=== PATIENT | male | born 1965 | race Caucasian/White ===

== ENCOUNTER 2022-04-09 11:20 | Inpatient (IN) | payer MEDICARE, MEDICAID ==
[~2022-04-09] VITALS: Ht 177.8 cm; Wt 108.0 kg
[2022-04-09] MEDS ORDERED: LORAZEPAM 0.5MG TABLET PO PRN (11:45)
[2022-04-09] MEDS ORDERED: GUAIFENESIN 200MG/10ML SUGAR FREE UDC PO PRN (11:45)
[2022-04-09] MEDS ORDERED: DIPHENHYDRAMINE 50MG/ML VIAL IV PRN (11:45)
[2022-04-09] MEDS ORDERED: MAGNESIUM/ALUMINUM HYDROXIDE/SIMETHICONE 30ML UDC PO PRN (11:45)
[2022-04-09] MEDS ORDERED: MORPHINE SULFATE 2 MG/ML CPJ (NOT FOR IM USE) IV PRN (11:45)
[2022-04-09] MEDS ORDERED: HYDROCODONE/ACETAMINOPHEN 5/325MG TABLET PO PRN (11:45)
[2022-04-09] MEDS ORDERED: DOCUSATE SODIUM 100MG CAPSULE PO PRN (11:45)
[2022-04-09] MEDS ORDERED: IPRATROPIUM/ALBUTEROL 0.5-3(2.5)MG/3ML NEB HHN PRN (11:45)
[2022-04-09] MEDS ORDERED: ONDANSETRON HCL 4MG/2ML INJ IV PRN (11:45)
[2022-04-09] MEDS ORDERED: NALOXONE HCL 0.4MG/ML VIAL IV PRN (11:45)
[2022-04-09] MEDS ORDERED: ENOXAPARIN 100MG/ML SYR SUBCUT NR (14:30)
[2022-04-09 14:49] LABS: CHLORIDE 111 mEq/L (98-107)
[2022-04-09 15:00] LABS: HDL CHOLESTEROL 31 mg/dL (40-59); LDL CHOLESTEROL 47 mg/dL (5-100)
[2022-04-09 15:02] LABS: BASOPHILS % 0.7 % (0.0-2.0); EOSINOPHILS % 1.6 % (0.0-5.0); HEMATOCRIT. 28.7 % (42.0-52.0); HEMOGLOBIN. 9.2 g/dL (14.0-18.0); LYMPHOCYTES % 23.7 % (20.0-50.0); MEAN CORPUSCULAR HEMOGLOBIN 28.3 pg (28.0-32.0); MEAN CORPUSCULAR VOLUME 87.7 fL (80.0-94.0); MEAN PLATELET VOLUME 8.5 fl (7.4-10.4); MONOCYTES % 9.6 % (2.0-8.0); NEUTROPHILS % 64.4 % (40.0-76.0); PLATELET 258 x1000/uL (130-400); RED BLOOD CELL COUNT 3.27 mill/uL (4.7-6.1); RED CELL DISTRIBUTION WIDTH 14.6 % (11.6-14.6)
[2022-04-09] MEDS: ASPIRIN 81MG TABLET PO SCH (15:30)
[2022-04-09 15:58] LABS: CLARITY URINE CLEAR (CLEAR); COLOR URINE YELLOW (YELLOW); KETONES URINE NEGATIVE (NEGATIVE); LEUKOCYTE ESTERASE URINE NEGATIVE (NEGATIVE); NITRITE URINE NEGATIVE (NEGATIVE); OCCULT BLOOD URINE NEGATIVE (NEGATIVE); PROTEIN URINE 3+ (NEGATIVE); SPECIFIC GRAVITY URINE 1.013 (1.005-1.030); UROBILINOGEN URINE 0.2 E.U./dL (0.2-1.0)
[2022-04-09] MEDS: CLONIDINE 0.1MG TABLET PO PRN (19:51)
[2022-04-09] MEDS: CARVEDILOL 3.125 MG TABLET PO SCH (21:00)
[2022-04-09 21:30] VITALS: BP 170/69
[2022-04-09 21:45] VITALS: BP 170/69
[2022-04-09 22:20] VITALS: BP 139/88
[2022-04-09 23:00] VITALS: BP 133/64
[2022-04-09] MEDS: NITROGLYCERIN OINT 1GM/INCH UDPKT TD SCH (23:14)
[2022-04-10] VITALS (16 sets, daily range): BP systolic 128–169; BP diastolic 57–86
[2022-04-10] MEDS: NITROGLYCERIN OINT 1GM/INCH UDPKT TD SCH ×3 (06:28→21:10)
[2022-04-10 06:30] LABS: BASOPHILS % 0.6 % (0.0-2.0); EOSINOPHILS % 2.4 % (0.0-5.0); HEMATOCRIT. 25.6 % (42.0-52.0); HEMOGLOBIN. 8.5 g/dL (14.0-18.0); LYMPHOCYTES % 21.2 % (20.0-50.0); MEAN CORPUSCULAR HEMOGLOBIN 28.9 pg (28.0-32.0); MEAN CORPUSCULAR VOLUME 86.7 fL (80.0-94.0); MEAN PLATELET VOLUME 8.8 fl (7.4-10.4); MONOCYTES % 9.2 % (2.0-8.0); NEUTROPHILS % 66.6 % (40.0-76.0); PLATELET 216 x1000/uL (130-400); RED BLOOD CELL COUNT 2.95 mill/uL (4.7-6.1); RED CELL DISTRIBUTION WIDTH 14.3 % (11.6-14.6)
[2022-04-10 07:32] LABS: PHOSPHORUS 4.3 mg/dL (2.5-4.9)
[2022-04-10] MEDS ORDERED: SODIUM CHLORIDE 0.45% 1,000 ML IV SCH (08:00)
[2022-04-10] MEDS: ASPIRIN 81MG TABLET PO SCH (09:00)
[2022-04-10] MEDS: CARVEDILOL 3.125 MG TABLET PO SCH ×2 (10:10→20:56)
[2022-04-10] MEDS ORDERED: FENTANYL CITRATE/PF 50MCG/ML 2ML VIAL ONE (11:05)
[2022-04-10] MEDS ORDERED: MIDAZOLAM HCL 2 MG/2 ML VIAL ONE (11:05)
[2022-04-10] MEDS ORDERED: ASPIRIN/SOD BICARB/CITRIC ACID 324MG TAB EFF ONE (11:05)
[2022-04-10] MEDS ORDERED: IODIXANOL 320MG/ML 100 ML BOTTLE IV ONE (11:05)
[2022-04-10] MEDS ORDERED: HEPARIN 1000 UNITS/ML 10ML ONE (11:05)
[2022-04-10] MEDS ORDERED: LIDOCAINE HCL 1% 10 MG/ML 10ML VIAL ONE ×2 (11:06→13:00)
[2022-04-10] MEDS ORDERED: CLOPIDOGREL 75MG TABLET ONE (13:36)
[2022-04-10] MEDS ORDERED: ONDANSETRON HCL 4MG/2ML INJ IV PRN (14:00)
[2022-04-10] MEDS ORDERED: MORPHINE SULFATE 2 MG/ML CPJ (NOT FOR IM USE) IV PRN (14:00)
[2022-04-10] MEDS ORDERED: SODIUM CHLORIDE 0.45% 1,000 ML IV ONE (14:00)
[2022-04-10] MEDS ORDERED: ACETAMINOPHEN 325MG TABLET PO PRN (14:00)
[2022-04-10] MEDS ORDERED: ATROPINE SULFATE 1MG/10ML SYR IV PRN (14:00)
[2022-04-10] MEDS ORDERED: CLOPIDOGREL 75MG TABLET PO SCH (14:00)
[2022-04-10] MEDS: CLONIDINE 0.1MG TABLET PO PRN (23:44)
[2022-04-11] VITALS (7 sets, daily range): BP systolic 113–145; BP diastolic 35–78
[2022-04-11 05:56] LABS: PARTIAL THROMBOPLASTIN TIME 27.2 sec (23.4-31.0); PROTHROMBIN TIME 11.2 sec (9.6-11.0)
[2022-04-11] MEDS: NITROGLYCERIN OINT 1GM/INCH UDPKT TD SCH (06:20)
[2022-04-11 06:34] LABS: BASOPHILS % 0.4 % (0.0-2.0); EOSINOPHILS % 2.7 % (0.0-5.0); HEMATOCRIT. 27.1 % (42.0-52.0); LYMPHOCYTES % 16.1 % (20.0-50.0); MEAN CORPUSCULAR HEMOGLOBIN 28.6 pg (28.0-32.0); MEAN CORPUSCULAR VOLUME 85.7 fL (80.0-94.0); MEAN PLATELET VOLUME 8.9 fl (7.4-10.4); MONOCYTES % 7.5 % (2.0-8.0); NEUTROPHILS % 73.3 % (40.0-76.0); PLATELET 233 x1000/uL (130-400); RED BLOOD CELL COUNT 3.16 mill/uL (4.7-6.1); RED CELL DISTRIBUTION WIDTH 14.2 % (11.6-14.6)
[2022-04-11] MEDS ORDERED: ASPIRIN 81MG TABLET PO SCH (09:00)
[2022-04-11] MEDS ORDERED: CLOPIDOGREL 75MG TABLET PO SCH (09:00)
[2022-04-11] MEDS ORDERED: CITRIC ACID/SODIUM CITRATE SOLN 15ML UDC PO SCH (09:00)
[2022-04-11] MEDS: CARVEDILOL 3.125 MG TABLET PO SCH (10:06)
== END 2022-04-11 12:45 | disposition home or self-care (01) | DRG 246 ==
LOC: EDBD 11:20 → ER 11:20 → 5EST 13:52 → ENRESERV 18:36 → CANRESERV 18:36 → ENRESERV 18:55 → CANRESERV 18:55 → EDBEDREQSVC 20:02 → ENRESERV 20:04
PROVIDERS: ADMIT Family Medicine Adult Medicine; ATTEND Family Medicine Adult Medicine
PROC: B2111ZZ Fluoroscopy of Multiple Coronary Arteries using Low Osmolar Contrast (ICD-10-PCS; principal; 2022-04-10)
PROC: 027034Z Dilation of Coronary Artery, One Artery with Drug-eluting Intraluminal Device, Percutaneous Approach (ICD-10-PCS; 2022-04-10)
DX: I25.110 Atherosclerotic heart disease of native coronary artery with unstable angina pectoris (principal); I50.31 Acute diastolic (congestive) heart failure; I13.0 Hypertensive heart and chronic kidney disease with heart failure and stage 1 through stage 4 chronic kidney disease, or unspecified chronic kidney disease; N18.4 Chronic kidney disease, stage 4 (severe); E11.22 Type 2 diabetes mellitus with diabetic chronic kidney disease; E78.5 Hyperlipidemia, unspecified; Z20.822 Contact with and (suspected) exposure to COVID-19; D64.9 Anemia, unspecified; E11.51 Type 2 diabetes mellitus with diabetic peripheral angiopathy without gangrene; R80.9 Proteinuria, unspecified; Z89.429 Acquired absence of other toe(s), unspecified side; Z90.49 Acquired absence of other specified parts of digestive tract; I25.2 Old myocardial infarction; Z83.3 Family history of diabetes mellitus
CPT/HCPCS: 36415; 71045; 80048; 80053; 80061; 81003; 82550; 82962; 83735; 83880; 84100; 84443; 84484; 85025; 85347; 86850; 86900; 87426; 92928; 93005; 93306; 93454; 97161; 97162; 97165; 97166; 97535; 99285; C1725; C1760; C1769; C1874; C1887; C1893; C9803; J1644; J1650; J2250; J3010; J3490; Q9967

== ENCOUNTER 2022-10-13 08:30 | Inpatient (IN) | payer MEDICARE, MEDICAID ==
[~2022-10-13] VITALS: Ht 177.8 cm; Wt 92.6 kg
[2022-10-13] VITALS (24 sets, daily range): BP systolic 110–168; BP diastolic 54–105
[2022-10-13] MEDS ORDERED: ASPIRIN 81MG TABLET PO ONE ×2 (09:00→10:00)
[2022-10-13 09:18] LABS: BASOPHILS % 0.3 % (0.0-2.0); HEMATOCRIT. 27.1 % (42.0-52.0); HEMOGLOBIN. 8.8 g/dL (14.0-18.0); LYMPHOCYTES % 9.1 % (20.0-50.0); MEAN CORPUSCULAR HEMOGLOBIN 27.5 pg (28.0-32.0); MEAN CORPUSCULAR VOLUME 84.6 fL (80.0-94.0); MEAN PLATELET VOLUME 8.9 fl (7.4-10.4); MONOCYTES % 8.2 % (2.0-8.0); NEUTROPHILS % 81.4 % (40.0-76.0); PLATELET 232 x1000/uL (130-400); RED BLOOD CELL COUNT 3.21 mill/uL (4.7-6.1); RED CELL DISTRIBUTION WIDTH 15.6 % (11.6-14.6)
[2022-10-13 09:27] LABS: PARTIAL THROMBOPLASTIN TIME 29.3 sec (23.4-31.0)
[2022-10-13 09:32] LABS: CHLORIDE 107 mEq/L (98-107)
[2022-10-13 09:34] LABS: BG BASE EXCESS -8.2 mmol/L (-2.0-2.0); BG CARBOXYHEMOGLOBIN 0.2 % (0.5-1.5); BG HCO3 ACT 15.6 mmol/L (22.0-26.0); BG METHEMOGLOBIN 0.3 % (0.0-1.5); BG OXYHEMOGLOBIN 98.5 % (94.0-97.0); BG PCO2 26.6 mmHg (35.0-45.0); BG PH 7.386 (7.350-7.450); BG PO2 215.9 mmHg (75.0-100.0); BG SAMPLE SITE RIGHT BRACHIAL; BG TOTAL HEMOGLOBIN 9.7 g/dL (12.0-18.0); BG VENT MODE MASK - BIPAP
[2022-10-13] MEDS ORDERED: NITROGLYCERIN 50MG PREMIX 250 ML IV ONE (10:00)
[2022-10-13] MEDS ORDERED: HEPARIN 25,000 UNITS PREMIX 250 ML IV ONE (10:00)
[2022-10-13] MEDS ORDERED: FUROSEMIDE 40MG/4ML VIAL IVP ONE (10:00)
[2022-10-13] MEDS ORDERED: HEPARIN 5000 UNITS/ML VIAL IV ONE (10:00)
[2022-10-13] MEDS ORDERED: PIPERACILLIN/TAZOBACTAM 3.375GM/50ML PREMIX IV ONE (10:45)
[2022-10-13] MEDS ORDERED: VANCOMYCIN 1G PREMIX 200 ML IV SCH (10:45)
[2022-10-13] MEDS ORDERED: PIPERACILLIN/TAZ 3.375G PREMIX 50 ML IV NR (10:45)
[2022-10-13] MEDS ORDERED: HEPARIN 25,000 UNITS PREMIX 250 ML IV SCH (11:00)
[2022-10-13] MEDS: NITROGLYCERIN 50MG PREMIX 250 ML IV SCH ×3 (11:23→17:41)
[2022-10-13] MEDS ORDERED: DOCUSATE SODIUM 100MG CAPSULE PO PRN (11:45)
[2022-10-13] MEDS ORDERED: ACETAMINOPHEN 325MG TABLET PO PRN ×2 (11:45)
[2022-10-13] MEDS ORDERED: HYDROCODONE/ACETAMINOPHEN 5/325MG TABLET PO PRN (11:45)
[2022-10-13] MEDS ORDERED: IPRATROPIUM/ALBUTEROL 0.5-3(2.5)MG/3ML NEB HHN PRN (11:45)
[2022-10-13] MEDS ORDERED: CLONIDINE 0.1MG TABLET PO PRN (11:45)
[2022-10-13] MEDS ORDERED: ALBUTEROL (0.083%) 2.5MG/3ML NEB HHN PRN (12:15)
[2022-10-13 13:01] LABS: CLARITY URINE CLEAR (CLEAR); COLOR URINE YELLOW (YELLOW); KETONES URINE NEGATIVE (NEGATIVE); LEUKOCYTE ESTERASE URINE NEGATIVE (NEGATIVE); NITRITE URINE NEGATIVE (NEGATIVE); OCCULT BLOOD URINE NEGATIVE (NEGATIVE); PROTEIN URINE 3+ (NEGATIVE); SPECIFIC GRAVITY URINE 1.012 (1.005-1.030); UROBILINOGEN URINE 0.2 E.U./dL (0.2-1.0)
[2022-10-13 13:17] LABS: *AMPHETAMINES SCREEN URINE NEGATIVE (NEGATIVE); *BARBITURATES SCREEN URINE NEGATIVE (NEGATIVE); *BENZODIAZEPINES SCREEN URINE NEGATIVE (NEGATIVE); *COCAINE SCREEN URINE NEGATIVE (NEGATIVE); CANNABINOID URINE SCREEN NEGATIVE (NEGATIVE); METHADONE URINE SCREEN NEGATIVE (NEGATIVE); OPIATES URINE SCREEN NEGATIVE (NEGATIVE); PHENCYCLIDINE URINE SCREEN NEGATIVE (NEGATIVE)
[2022-10-13] MEDS ORDERED: FUROSEMIDE 100MG/10ML VIAL IVP NR (16:00)
[2022-10-13] MEDS: BENZONATATE 100MG CAPSULE PO PRN (16:47)
[2022-10-13] MEDS ORDERED: HEPARIN BOLUS PRN aPTT <30 IV (17:00)
[2022-10-13] MEDS ORDERED: HEPARIN BOLUS PRN aPTT 30-44 IV (17:00)
[2022-10-13] MEDS ORDERED: ENOXAPARIN 120MG/0.8ML SYR SUBCUT SCH (20:00)
[2022-10-13] MEDS: ALBUTEROL (0.083%) 2.5MG/3ML NEB HHN SCH (20:41)
[2022-10-13] MEDS ORDERED: DEXTROSE 50% WATER 50ML SYRINGE IV PRN (21:00)
[2022-10-13] MEDS: INSULIN LISPRO 100 UNITS/ML SUBCUT SCH (21:00)
[2022-10-13] MEDS: LORAZEPAM 0.5MG TABLET PO PRN (21:11)
[2022-10-13] MEDS: GUAIFENESIN 600MG ER TABLET PO SCH (21:11)
[2022-10-13] MEDS: BLOOD SUGAR DIAGNOSTIC STRIP TEST SCH (21:23)
[2022-10-14] VITALS (92 sets, daily range): BP systolic 76–178; BP diastolic 38–112
[2022-10-14] MEDS: BENZONATATE 100MG CAPSULE PO PRN ×2 (01:01→14:30)
[2022-10-14] MEDS: NITROGLYCERIN 50MG PREMIX 250 ML IV SCH ×2 (01:23→15:11)
[2022-10-14] MEDS: ALBUTEROL (0.083%) 2.5MG/3ML NEB HHN SCH ×4 (02:18→20:32)
[2022-10-14 05:01] LABS: HEMATOCRIT. 23.3 % (42.0-52.0); HEMOGLOBIN. 7.8 g/dL (14.0-18.0); MEAN CORPUSCULAR HEMOGLOBIN 27.6 pg (28.0-32.0); MEAN CORPUSCULAR VOLUME 82.2 fL (80.0-94.0); MEAN PLATELET VOLUME 8.4 fl (7.4-10.4); PLATELET 217 x1000/uL (130-400); RED BLOOD CELL COUNT 2.84 mill/uL (4.7-6.1); RED CELL DISTRIBUTION WIDTH 15.5 % (11.6-14.6)
[2022-10-14] MEDS: ONDANSETRON HCL 4MG/2ML INJ IV PRN ×2 (05:24→18:43)
[2022-10-14] MEDS ORDERED: LIDOCAINE HCL 1% 10 MG/ML 10ML VIAL ONE (07:55)
[2022-10-14] MEDS: BLOOD SUGAR DIAGNOSTIC STRIP TEST SCH ×4 (08:18→20:56)
[2022-10-14] MEDS: INSULIN LISPRO 100 UNITS/ML SUBCUT SCH ×4 (08:19→20:56)
[2022-10-14 09:05] LABS: PLATELET ESTIMATE NORMAL
[2022-10-14 09:16] LABS: BG BASE EXCESS -4.2 mmol/L (-2.0-2.0); BG CARBOXYHEMOGLOBIN 0.4 % (0.5-1.5); BG DEOXYHEMOGLOBIN 1.1 % (0.0-5.0); BG FRACTION INSPIRED OXYGEN 80; BG HCO3 ACT 19.6 mmol/L (22.0-26.0); BG METHEMOGLOBIN 0.2 % (0.0-1.5); BG OXYGEN SATURATION 98.9 % (92.0-98.5); BG OXYHEMOGLOBIN 98.3 % (94.0-97.0); BG PH 7.419 (7.350-7.450); BG PO2 174.9 mmHg (75.0-100.0); BG SAMPLE SITE RIGHT RADIAL; BG TOTAL HEMOGLOBIN 8.6 g/dL (12.0-18.0); BG TOTAL RESPIRATORY RATE 38 b/min; BG VENT MODE MASK - BIPAP
[2022-10-14] MEDS: GUAIFENESIN 600MG ER TABLET PO SCH ×2 (09:41→20:55)
[2022-10-14] MEDS: IPRATROPIUM BROMIDE (0.02%) 0.5MG/2.5ML NEB HHN PRN (10:02)
[2022-10-14] MEDS: ASPIRIN 81MG EC TABLET PO SCH (12:14)
[2022-10-14] MEDS: CLOPIDOGREL 75MG TABLET PO SCH (12:14)
[2022-10-14] MEDS ORDERED: NALOXONE HCL 0.4MG/ML VIAL IV PRN (12:15)
[2022-10-14] MEDS ORDERED: FUROSEMIDE 100MG/10ML VIAL IVP NR (16:45)
[2022-10-14] MEDS: LORAZEPAM 0.5MG TABLET PO PRN (17:24)
[2022-10-14 18:08] LABS: HEPATITIS B SURFACE ANTIGEN NEGATIVE
[2022-10-14] MEDS: ENOXAPARIN 120MG/0.8ML SYR SUBCUT SCH (20:55)
[2022-10-14] MEDS: CARVEDILOL 3.125 MG TABLET PO SCH (20:56)
[2022-10-15] VITALS (101 sets, daily range): BP systolic 62–177; BP diastolic 21–153
[2022-10-15 00:01] LABS: BG BASE EXCESS -5.1 mmol/L (-2.0-2.0); BG CARBOXYHEMOGLOBIN 0.4 % (0.5-1.5); BG DEOXYHEMOGLOBIN 14.5 % (0.0-5.0); BG FRACTION INSPIRED OXYGEN 95; BG METHEMOGLOBIN 0.1 % (0.0-1.5); BG OXYGEN SATURATION 85.4 % (92.0-98.5); BG PH 7.391 (7.350-7.450); BG PO2 52.3 mmHg (75.0-100.0); BG SAMPLE SITE RIGHT RADIAL; BG TOTAL HEMOGLOBIN 11.4 g/dL (12.0-18.0); BG TOTAL RESPIRATORY RATE 20 b/min; BG VENT MODE MASK - BIPAP
[2022-10-15] MEDS: IPRATROPIUM BROMIDE (0.02%) 0.5MG/2.5ML NEB HHN PRN (00:16)
[2022-10-15] MEDS: ALBUTEROL (0.083%) 2.5MG/3ML NEB HHN SCH (01:59)
[2022-10-15] MEDS ORDERED: FUROSEMIDE 100MG/10ML VIAL IVP NR (02:58)
[2022-10-15 05:50] LABS: PHOSPHORUS 4.8 mg/dL (2.5-4.9)
[2022-10-15] MEDS: INSULIN LISPRO 100 UNITS/ML SUBCUT SCH ×4 (08:20→20:52)
[2022-10-15] MEDS ORDERED: IPRATROPIUM BROMIDE (0.02%) 0.5MG/2.5ML NEB HHN PRN (08:30)
[2022-10-15 08:32] LABS: BG BASE EXCESS -0.7 mmol/L (-2.0-2.0); BG CARBOXYHEMOGLOBIN 0.6 % (0.5-1.5); BG DEOXYHEMOGLOBIN 0.8 % (0.0-5.0); BG FRACTION INSPIRED OXYGEN 100; BG METHEMOGLOBIN 0.3 % (0.0-1.5); BG OXYGEN SATURATION 99.2 % (92.0-98.5); BG OXYHEMOGLOBIN 98.3 % (94.0-97.0); BG PH 7.449 (7.350-7.450); BG PO2 208.9 mmHg (75.0-100.0); BG SAMPLE SITE RIGHT RADIAL; BG TOTAL HEMOGLOBIN 8.9 g/dL (12.0-18.0); BG VENT MODE MASK - BIPAP
[2022-10-15] MEDS: BLOOD SUGAR DIAGNOSTIC STRIP TEST SCH ×4 (08:41→20:48)
[2022-10-15] MEDS: IPRATROPIUM BROMIDE (0.02%) 0.5MG/2.5ML NEB HHN SCH ×3 (08:50→20:17)
[2022-10-15 09:24] LABS: HEMATOCRIT. 24.8 % (42.0-52.0); HEMOGLOBIN. 8.2 g/dL (14.0-18.0); MEAN CORPUSCULAR HEMOGLOBIN 27.1 pg (28.0-32.0); MEAN CORPUSCULAR VOLUME 82.2 fL (80.0-94.0); MEAN PLATELET VOLUME 8.4 fl (7.4-10.4); PLATELET 240 x1000/uL (130-400); RED BLOOD CELL COUNT 3.02 mill/uL (4.7-6.1); RED CELL DISTRIBUTION WIDTH 15.4 % (11.6-14.6)
[2022-10-15] MEDS: CLOPIDOGREL 75MG TABLET PO SCH (09:37)
[2022-10-15] MEDS: GUAIFENESIN 600MG ER TABLET PO SCH ×2 (09:37→20:47)
[2022-10-15] MEDS: ASPIRIN 81MG EC TABLET PO SCH (09:37)
[2022-10-15] MEDS: FAMOTIDINE 20MG TABLET PO SCH (09:37)
[2022-10-15] MEDS: CARVEDILOL 3.125 MG TABLET PO SCH (09:38)
[2022-10-15 10:38] LABS: PLATELET ESTIMATE NORMAL
[2022-10-15] MEDS: LORAZEPAM 0.5MG TABLET PO PRN (14:28)
[2022-10-15] MEDS: CEFEPIME 1,000 MG in DEXTROSE 5% WATER 50 ML IV SCH (20:46)
[2022-10-15] MEDS: CARVEDILOL 6.25 MG TABLET PO SCH (20:47)
[2022-10-15] MEDS: ENOXAPARIN 120MG/0.8ML SYR SUBCUT SCH (20:47)
[2022-10-15] MEDS ORDERED: AMLODIPINE 5MG TABLET PO SCH (21:00)
[2022-10-16] VITALS (56 sets, daily range): BP systolic 86–166; BP diastolic 32–99
[2022-10-16] MEDS: IPRATROPIUM BROMIDE (0.02%) 0.5MG/2.5ML NEB HHN SCH ×3 (01:08→21:03)
[2022-10-16 05:23] LABS: BASOPHILS % 0.3 % (0.0-2.0); EOSINOPHILS % 3.6 % (0.0-5.0); HEMATOCRIT. 26.9 % (42.0-52.0); HEMOGLOBIN. 8.8 g/dL (14.0-18.0); LYMPHOCYTES % 8.8 % (20.0-50.0); MEAN CORPUSCULAR HEMOGLOBIN 27.5 pg (28.0-32.0); MEAN PLATELET VOLUME 8.7 fl (7.4-10.4); MONOCYTES % 3.9 % (2.0-8.0); NEUTROPHILS % 83.4 % (40.0-76.0); PLATELET 252 x1000/uL (130-400); RED BLOOD CELL COUNT 3.21 mill/uL (4.7-6.1); RED CELL DISTRIBUTION WIDTH 15.7 % (11.6-14.6)
[2022-10-16] MEDS: BLOOD SUGAR DIAGNOSTIC STRIP TEST SCH ×4 (07:47→21:00)
[2022-10-16] MEDS: INSULIN LISPRO 100 UNITS/ML SUBCUT SCH ×4 (07:48→21:45)
[2022-10-16] MEDS: FAMOTIDINE 20MG TABLET PO SCH (08:51)
[2022-10-16] MEDS: CLOPIDOGREL 75MG TABLET PO SCH (08:51)
[2022-10-16] MEDS: CARVEDILOL 6.25 MG TABLET PO SCH ×2 (08:51→21:36)
[2022-10-16] MEDS: ASPIRIN 81MG EC TABLET PO SCH (08:51)
[2022-10-16] MEDS: GUAIFENESIN 600MG ER TABLET PO SCH ×3 (08:51→21:00)
[2022-10-16 09:06] LABS: BG BASE EXCESS 1.2 mmol/L (-2.0-2.0); BG CARBOXYHEMOGLOBIN 0.3 % (0.5-1.5); BG DEOXYHEMOGLOBIN 0.6 % (0.0-5.0); BG FRACTION INSPIRED OXYGEN 90; BG HCO3 ACT 24.4 mmol/L (22.0-26.0); BG METHEMOGLOBIN 0.3 % (0.0-1.5); BG OXYGEN SATURATION 99.4 % (92.0-98.5); BG OXYHEMOGLOBIN 98.8 % (94.0-97.0); BG PCO2 33.1 mmHg (35.0-45.0); BG PH 7.486 (7.350-7.450); BG PO2 302.6 mmHg (75.0-100.0); BG SAMPLE SITE RIGHT RADIAL; BG TOTAL HEMOGLOBIN 8.6 g/dL (12.0-18.0); BG VENT MODE MASK - BIPAP
[2022-10-16] MEDS: BENZONATATE 100MG CAPSULE PO PRN (21:36)
[2022-10-16] MEDS: CEFEPIME 1,000 MG in DEXTROSE 5% WATER 50 ML IV SCH (21:36)
[2022-10-16] MEDS: ENOXAPARIN 100MG/ML SYR SUBCUT SCH (21:36)
[2022-10-17] VITALS (59 sets, daily range): BP systolic 88–178; BP diastolic 25–90
[2022-10-17] MEDS: IPRATROPIUM BROMIDE (0.02%) 0.5MG/2.5ML NEB HHN SCH ×5 (02:18→21:46)
[2022-10-17 05:45] LABS: BASOPHILS % 0.2 % (0.0-2.0); EOSINOPHILS % 4.8 % (0.0-5.0); HEMATOCRIT. 27.1 % (42.0-52.0); HEMOGLOBIN. 8.8 g/dL (14.0-18.0); LYMPHOCYTES % 9.5 % (20.0-50.0); MEAN CORPUSCULAR VOLUME 83.1 fL (80.0-94.0); MEAN PLATELET VOLUME 8.6 fl (7.4-10.4); MONOCYTES % 5.1 % (2.0-8.0); NEUTROPHILS % 80.4 % (40.0-76.0); PLATELET 281 x1000/uL (130-400); RED BLOOD CELL COUNT 3.26 mill/uL (4.7-6.1); RED CELL DISTRIBUTION WIDTH 15.6 % (11.6-14.6)
[2022-10-17] MEDS: BLOOD SUGAR DIAGNOSTIC STRIP TEST SCH ×4 (08:01→20:44)
[2022-10-17] MEDS: INSULIN LISPRO 100 UNITS/ML SUBCUT SCH ×4 (08:01→20:29)
[2022-10-17 09:11] LABS: BG CARBOXYHEMOGLOBIN 0.2 % (0.5-1.5); BG DEOXYHEMOGLOBIN 6.2 % (0.0-5.0); BG FRACTION INSPIRED OXYGEN 80; BG HCO3 ACT 25.3 mmol/L (22.0-26.0); BG METHEMOGLOBIN 0.3 % (0.0-1.5); BG OXYGEN SATURATION 93.8 % (92.0-98.5); BG OXYHEMOGLOBIN 93.3 % (94.0-97.0); BG PCO2 38.7 mmHg (35.0-45.0); BG PH 7.433 (7.350-7.450); BG SAMPLE SITE RIGHT RADIAL; BG VENT MODE HIGH FLOW
[2022-10-17] MEDS: FAMOTIDINE 20MG TABLET PO SCH (10:09)
[2022-10-17] MEDS: CLOPIDOGREL 75MG TABLET PO SCH (10:09)
[2022-10-17] MEDS: CARVEDILOL 6.25 MG TABLET PO SCH ×2 (10:10→20:28)
[2022-10-17] MEDS: GUAIFENESIN 600MG ER TABLET PO SCH ×2 (10:10→20:27)
[2022-10-17] MEDS: ASPIRIN 81MG EC TABLET PO SCH (10:10)
[2022-10-17] MEDS: FUROSEMIDE 40MG/4ML VIAL IVP SCH (11:12)
[2022-10-17] MEDS ORDERED: GUAIFENESIN-DM 200MG-20MG/10ML UDC PO PRN (12:45)
[2022-10-17] MEDS: BENZONATATE 100MG CAPSULE PO SCH ×2 (13:42→22:20)
[2022-10-17] MEDS: ALBUTEROL (0.083%) 2.5MG/3ML NEB HHN SCH ×2 (13:48→21:46)
[2022-10-17] MEDS: CEFEPIME 1,000 MG in DEXTROSE 5% WATER 50 ML IV SCH (20:27)
[2022-10-17] MEDS: ENOXAPARIN 100MG/ML SYR SUBCUT SCH (20:28)
[2022-10-17] MEDS: ZOLPIDEM TARTRATE 5MG TABLET PO PRN (20:28)
[2022-10-18] VITALS (50 sets, daily range): BP systolic 46–171; BP diastolic 16–111
[2022-10-18] MEDS: IPRATROPIUM BROMIDE (0.02%) 0.5MG/2.5ML NEB HHN SCH ×4 (01:16→22:08)
[2022-10-18] MEDS: ALBUTEROL (0.083%) 2.5MG/3ML NEB HHN SCH ×4 (01:16→22:08)
[2022-10-18 06:04] LABS: BASOPHILS % 0.4 % (0.0-2.0); EOSINOPHILS % 4.5 % (0.0-5.0); HEMATOCRIT. 26.6 % (42.0-52.0); HEMOGLOBIN. 8.6 g/dL (14.0-18.0); LYMPHOCYTES % 10.3 % (20.0-50.0); MEAN CORPUSCULAR VOLUME 83.4 fL (80.0-94.0); MEAN PLATELET VOLUME 8.5 fl (7.4-10.4); MONOCYTES % 6.1 % (2.0-8.0); NEUTROPHILS % 78.7 % (40.0-76.0); PLATELET 308 x1000/uL (130-400); RED BLOOD CELL COUNT 3.19 mill/uL (4.7-6.1); RED CELL DISTRIBUTION WIDTH 15.4 % (11.6-14.6)
[2022-10-18] MEDS: BENZONATATE 100MG CAPSULE PO SCH ×3 (06:52→22:07)
[2022-10-18] MEDS: BLOOD SUGAR DIAGNOSTIC STRIP TEST SCH ×4 (08:15→21:00)
[2022-10-18] MEDS: CLOPIDOGREL 75MG TABLET PO SCH (08:33)
[2022-10-18] MEDS: FUROSEMIDE 40MG/4ML VIAL IVP SCH (08:33)
[2022-10-18] MEDS: FAMOTIDINE 20MG TABLET PO SCH (08:33)
[2022-10-18] MEDS: ASPIRIN 81MG EC TABLET PO SCH (08:33)
[2022-10-18] MEDS: ONDANSETRON HCL 4MG/2ML INJ IV PRN (08:33)
[2022-10-18] MEDS: GUAIFENESIN 600MG ER TABLET PO SCH ×2 (08:33→20:57)
[2022-10-18] MEDS: CARVEDILOL 6.25 MG TABLET PO SCH ×2 (08:34→20:58)
[2022-10-18] MEDS: INSULIN LISPRO 100 UNITS/ML SUBCUT SCH ×4 (08:48→21:00)
[2022-10-18 09:22] LABS: BG BASE EXCESS -2.1 mmol/L (-2.0-2.0); BG CARBOXYHEMOGLOBIN 0.4 % (0.5-1.5); BG DEOXYHEMOGLOBIN 0.5 % (0.0-5.0); BG FRACTION INSPIRED OXYGEN 100; BG HCO3 ACT 21.6 mmol/L (22.0-26.0); BG METHEMOGLOBIN 0.3 % (0.0-1.5); BG OXYGEN SATURATION 99.5 % (92.0-98.5); BG OXYHEMOGLOBIN 98.8 % (94.0-97.0); BG PCO2 32.4 mmHg (35.0-45.0); BG PH 7.441 (7.350-7.450); BG SAMPLE SITE RIGHT RADIAL; BG TOTAL HEMOGLOBIN 9.4 g/dL (12.0-18.0); BG VENT MODE HIGH FLOW
[2022-10-18] MEDS: CEFEPIME 1,000 MG in DEXTROSE 5% WATER 50 ML IV SCH (20:57)
[2022-10-18] MEDS: ENOXAPARIN 100MG/ML SYR SUBCUT SCH (20:59)
[2022-10-18] MEDS: ZOLPIDEM TARTRATE 5MG TABLET PO PRN (22:07)
[2022-10-19] VITALS (38 sets, daily range): BP systolic 101–190; BP diastolic 42–130
[2022-10-19] MEDS: ALBUTEROL (0.083%) 2.5MG/3ML NEB HHN SCH ×4 (02:43→20:41)
[2022-10-19] MEDS: IPRATROPIUM BROMIDE (0.02%) 0.5MG/2.5ML NEB HHN SCH ×4 (02:43→20:41)
[2022-10-19 05:30] LABS: BASOPHILS % 0.6 % (0.0-2.0); EOSINOPHILS % 6.8 % (0.0-5.0); HEMATOCRIT. 26.2 % (42.0-52.0); HEMOGLOBIN. 8.6 g/dL (14.0-18.0); LYMPHOCYTES % 14.7 % (20.0-50.0); MEAN CORPUSCULAR HEMOGLOBIN 26.8 pg (28.0-32.0); MEAN CORPUSCULAR VOLUME 82.1 fL (80.0-94.0); MEAN PLATELET VOLUME 8.4 fl (7.4-10.4); MONOCYTES % 7.7 % (2.0-8.0); NEUTROPHILS % 70.2 % (40.0-76.0); PLATELET 303 x1000/uL (130-400); RED BLOOD CELL COUNT 3.19 mill/uL (4.7-6.1); RED CELL DISTRIBUTION WIDTH 15.7 % (11.6-14.6)
[2022-10-19] MEDS: BENZONATATE 100MG CAPSULE PO SCH ×3 (05:48→21:48)
[2022-10-19] MEDS: BLOOD SUGAR DIAGNOSTIC STRIP TEST SCH ×4 (08:16→21:32)
[2022-10-19] MEDS: ASPIRIN 81MG EC TABLET PO SCH (08:26)
[2022-10-19] MEDS: FUROSEMIDE 40MG/4ML VIAL IVP SCH (08:26)
[2022-10-19] MEDS: CLOPIDOGREL 75MG TABLET PO SCH (08:26)
[2022-10-19] MEDS: FAMOTIDINE 20MG TABLET PO SCH (08:27)
[2022-10-19] MEDS: GUAIFENESIN 600MG ER TABLET PO SCH ×2 (08:27→22:11)
[2022-10-19] MEDS: INSULIN LISPRO 100 UNITS/ML SUBCUT SCH ×4 (08:34→22:12)
[2022-10-19] MEDS: CARVEDILOL 6.25 MG TABLET PO SCH ×2 (08:35→21:48)
[2022-10-19] MEDS: AMLODIPINE 5MG TABLET PO SCH (09:00)
[2022-10-19] MEDS: ONDANSETRON HCL 4MG/2ML INJ IV PRN (14:55)
[2022-10-19] MEDS: CEFEPIME 1,000 MG in DEXTROSE 5% WATER 50 ML IV SCH (21:48)
[2022-10-19] MEDS: ENOXAPARIN 100MG/ML SYR SUBCUT SCH (22:11)
[2022-10-20] VITALS (12 sets, daily range): BP systolic 88–124; BP diastolic 26–84
[2022-10-20] MEDS: ONDANSETRON HCL 4MG/2ML INJ IV PRN (02:19)
[2022-10-20] MEDS: IPRATROPIUM BROMIDE (0.02%) 0.5MG/2.5ML NEB HHN SCH ×4 (02:34→21:05)
[2022-10-20] MEDS: ALBUTEROL (0.083%) 2.5MG/3ML NEB HHN SCH ×4 (02:34→21:05)
[2022-10-20] MEDS: ZOLPIDEM TARTRATE 5MG TABLET PO PRN ×2 (02:38→21:44)
[2022-10-20] MEDS: BENZONATATE 100MG CAPSULE PO SCH ×3 (06:01→21:42)
[2022-10-20] MEDS: INSULIN LISPRO 100 UNITS/ML SUBCUT SCH ×4 (08:00→20:36)
[2022-10-20] MEDS: BLOOD SUGAR DIAGNOSTIC STRIP TEST SCH ×4 (08:00→20:22)
[2022-10-20 08:18] LABS: BASOPHILS % 0.5 % (0.0-2.0); EOSINOPHILS % 4.1 % (0.0-5.0); HEMATOCRIT. 28.7 % (42.0-52.0); HEMOGLOBIN. 9.2 g/dL (14.0-18.0); LYMPHOCYTES % 12.6 % (20.0-50.0); MEAN CORPUSCULAR HEMOGLOBIN 26.5 pg (28.0-32.0); MEAN CORPUSCULAR VOLUME 82.7 fL (80.0-94.0); MEAN PLATELET VOLUME 8.4 fl (7.4-10.4); MONOCYTES % 6.7 % (2.0-8.0); NEUTROPHILS % 76.1 % (40.0-76.0); PLATELET 336 x1000/uL (130-400); RED BLOOD CELL COUNT 3.47 mill/uL (4.7-6.1); RED CELL DISTRIBUTION WIDTH 15.5 % (11.6-14.6)
[2022-10-20] MEDS: CARVEDILOL 6.25 MG TABLET PO SCH ×2 (09:00→21:43)
[2022-10-20] MEDS: AMLODIPINE 5MG TABLET PO SCH (09:00)
[2022-10-20] MEDS: CLOPIDOGREL 75MG TABLET PO SCH (09:16)
[2022-10-20] MEDS: GUAIFENESIN 600MG ER TABLET PO SCH ×2 (09:16→21:43)
[2022-10-20] MEDS: FAMOTIDINE 20MG TABLET PO SCH (09:16)
[2022-10-20] MEDS: FUROSEMIDE 40MG/4ML VIAL IVP SCH (09:16)
[2022-10-20] MEDS: ASPIRIN 81MG EC TABLET PO SCH (09:17)
[2022-10-20 10:46] LABS: BG BASE EXCESS -0.7 mmol/L (-2.0-2.0); BG CARBOXYHEMOGLOBIN 0.2 % (0.5-1.5); BG DEOXYHEMOGLOBIN 3.5 % (0.0-5.0); BG FRACTION INSPIRED OXYGEN 50; BG HCO3 ACT 23.3 mmol/L (22.0-26.0); BG METHEMOGLOBIN 0.1 % (0.0-1.5); BG OXYGEN SATURATION 96.5 % (92.0-98.5); BG OXYHEMOGLOBIN 96.2 % (94.0-97.0); BG PCO2 35.9 mmHg (35.0-45.0); BG PO2 87.4 mmHg (75.0-100.0); BG SAMPLE SITE RIGHT RADIAL; BG VENT MODE HIGH FLOW
[2022-10-20] MEDS: PANTOPRAZOLE 40MG DR TABLET PO SCH (12:49)
[2022-10-20] MEDS: CEFEPIME 1,000 MG in DEXTROSE 5% WATER 50 ML IV SCH (20:21)
[2022-10-20] MEDS: ENOXAPARIN 100MG/ML SYR SUBCUT SCH (20:34)
[2022-10-21] VITALS (11 sets, daily range): BP systolic 125–181; BP diastolic 64–104
[2022-10-21] MEDS: IPRATROPIUM BROMIDE (0.02%) 0.5MG/2.5ML NEB HHN SCH ×4 (01:01→20:11)
[2022-10-21] MEDS: ALBUTEROL (0.083%) 2.5MG/3ML NEB HHN SCH ×4 (01:01→20:10)
[2022-10-21 05:25] LABS: BASOPHILS % 0.5 % (0.0-2.0); HEMATOCRIT. 30.9 % (42.0-52.0); HEMOGLOBIN. 9.9 g/dL (14.0-18.0); LYMPHOCYTES % 12.9 % (20.0-50.0); MEAN CORPUSCULAR HEMOGLOBIN 26.4 pg (28.0-32.0); MEAN CORPUSCULAR VOLUME 82.4 fL (80.0-94.0); MEAN PLATELET VOLUME 8.5 fl (7.4-10.4); MONOCYTES % 6.6 % (2.0-8.0); PLATELET 391 x1000/uL (130-400); RED BLOOD CELL COUNT 3.76 mill/uL (4.7-6.1); RED CELL DISTRIBUTION WIDTH 15.5 % (11.6-14.6)
[2022-10-21] MEDS: BLOOD SUGAR DIAGNOSTIC STRIP TEST SCH ×4 (07:30→21:00)
[2022-10-21] MEDS: INSULIN LISPRO 100 UNITS/ML SUBCUT SCH ×4 (08:00→21:00)
[2022-10-21] MEDS: ASPIRIN 81MG EC TABLET PO SCH (08:38)
[2022-10-21] MEDS: PANTOPRAZOLE 40MG DR TABLET PO SCH (08:38)
[2022-10-21] MEDS: CLOPIDOGREL 75MG TABLET PO SCH (08:39)
[2022-10-21] MEDS: GUAIFENESIN 600MG ER TABLET PO SCH ×2 (08:39→21:00)
[2022-10-21] MEDS: AMLODIPINE 5MG TABLET PO SCH (09:00)
[2022-10-21] MEDS: CARVEDILOL 6.25 MG TABLET PO SCH ×2 (09:00→21:00)
[2022-10-21] MEDS: LORAZEPAM 0.5MG TABLET PO PRN (11:48)
[2022-10-21] MEDS: BENZONATATE 100MG CAPSULE PO SCH ×2 (13:29→22:00)
[2022-10-21] MEDS: ENOXAPARIN 100MG/ML SYR SUBCUT SCH (20:00)
[2022-10-22] VITALS (22 sets, daily range): BP systolic 93–164; BP diastolic 54–86
[2022-10-22] MEDS: ALBUTEROL (0.083%) 2.5MG/3ML NEB HHN SCH ×4 (01:51→21:47)
[2022-10-22] MEDS: IPRATROPIUM BROMIDE (0.02%) 0.5MG/2.5ML NEB HHN SCH ×4 (01:51→21:47)
[2022-10-22] MEDS: BENZONATATE 100MG CAPSULE PO SCH ×3 (06:00→21:21)
[2022-10-22 06:02] LABS: BASOPHILS % 0.6 % (0.0-2.0); EOSINOPHILS % 3.2 % (0.0-5.0); HEMATOCRIT. 27.9 % (42.0-52.0); HEMOGLOBIN. 9.1 g/dL (14.0-18.0); LYMPHOCYTES % 17.9 % (20.0-50.0); MEAN CORPUSCULAR HEMOGLOBIN 26.8 pg (28.0-32.0); MEAN CORPUSCULAR VOLUME 81.9 fL (80.0-94.0); MEAN PLATELET VOLUME 8.5 fl (7.4-10.4); MONOCYTES % 7.2 % (2.0-8.0); NEUTROPHILS % 71.1 % (40.0-76.0); PLATELET 405 x1000/uL (130-400); RED BLOOD CELL COUNT 3.41 mill/uL (4.7-6.1); RED CELL DISTRIBUTION WIDTH 15.4 % (11.6-14.6)
[2022-10-22] MEDS: BLOOD SUGAR DIAGNOSTIC STRIP TEST SCH ×4 (07:30→20:52)
[2022-10-22] MEDS: CARVEDILOL 6.25 MG TABLET PO SCH ×2 (09:00→21:00)
[2022-10-22] MEDS: AMLODIPINE 5MG TABLET PO SCH (09:00)
[2022-10-22] MEDS: LORAZEPAM 0.5MG TABLET PO PRN (10:06)
[2022-10-22] MEDS: ASPIRIN 81MG EC TABLET PO SCH (10:07)
[2022-10-22] MEDS: GUAIFENESIN 600MG ER TABLET PO SCH ×2 (10:07→21:21)
[2022-10-22] MEDS: CLOPIDOGREL 75MG TABLET PO SCH (10:08)
[2022-10-22] MEDS: INSULIN LISPRO 100 UNITS/ML SUBCUT SCH ×4 (10:10→21:47)
[2022-10-22] MEDS: PANTOPRAZOLE 40MG DR TABLET PO SCH (10:11)
[2022-10-22] MEDS: IRON SUCROSE COMPLEX 100 MG/5 ML ML IV SCH (13:01)
[2022-10-22] MEDS: ZOLPIDEM TARTRATE 5MG TABLET PO PRN (21:21)
[2022-10-22] MEDS: ENOXAPARIN 100MG/ML SYR SUBCUT SCH (21:22)
[2022-10-23] VITALS (11 sets, daily range): BP systolic 140–167; BP diastolic 71–94
[2022-10-23] MEDS: ALBUTEROL (0.083%) 2.5MG/3ML NEB HHN SCH ×2 (02:18→09:00)
[2022-10-23] MEDS: IPRATROPIUM BROMIDE (0.02%) 0.5MG/2.5ML NEB HHN SCH ×3 (02:19→09:37)
[2022-10-23] MEDS: BENZONATATE 100MG CAPSULE PO SCH ×3 (06:00→21:19)
[2022-10-23] MEDS: INSULIN LISPRO 100 UNITS/ML SUBCUT SCH ×4 (06:23→21:00)
[2022-10-23] MEDS: PANTOPRAZOLE 40MG DR TABLET PO SCH ×2 (06:23→10:00)
[2022-10-23] MEDS: BLOOD SUGAR DIAGNOSTIC STRIP TEST SCH ×4 (06:23→21:19)
[2022-10-23 06:25] LABS: HEMATOCRIT. 29.6 % (42.0-52.0); HEMOGLOBIN. 9.8 g/dL (14.0-18.0); MEAN CORPUSCULAR VOLUME 81.9 fL (80.0-94.0); MEAN PLATELET VOLUME 8.3 fl (7.4-10.4); PLATELET 427 x1000/uL (130-400); RED BLOOD CELL COUNT 3.62 mill/uL (4.7-6.1); RED CELL DISTRIBUTION WIDTH 15.2 % (11.6-14.6)
[2022-10-23] MEDS ORDERED: ASPIRIN/SOD BICARB/CITRIC ACID 324MG TAB EFF ONE (07:20)
[2022-10-23] MEDS ORDERED: HEPARIN 1000 UNITS/ML 10ML ONE (07:20)
[2022-10-23] MEDS ORDERED: LIDOCAINE HCL/PF 1% 10 MG/ML 5ML VIAL ONE ×2 (07:20→08:03)
[2022-10-23] MEDS ORDERED: IODIXANOL 320MG/ML 100 ML BOTTLE IV ONE ×2 (07:20→08:50)
[2022-10-23] MEDS ORDERED: FENTANYL CITRATE/PF 50MCG/ML 2ML VIAL ONE (08:00)
[2022-10-23] MEDS ORDERED: MIDAZOLAM HCL 2 MG/2 ML VIAL ONE (08:01)
[2022-10-23] MEDS ORDERED: LIDOCAINE HCL/PF 2% 20MG/ML 5 ML/VIAL ONE (08:03)
[2022-10-23] MEDS: CARVEDILOL 6.25 MG TABLET PO SCH ×2 (08:27→21:19)
[2022-10-23] MEDS: GUAIFENESIN 600MG ER TABLET PO SCH ×2 (08:27→21:19)
[2022-10-23] MEDS: ASPIRIN 81MG EC TABLET PO SCH (08:27)
[2022-10-23] MEDS: CLOPIDOGREL 75MG TABLET PO SCH (08:28)
[2022-10-23] MEDS: AMLODIPINE 5MG TABLET PO SCH ×2 (08:28→10:00)
[2022-10-23] MEDS ORDERED: CLOPIDOGREL 75MG TABLET ONE (09:05)
[2022-10-23] MEDS ORDERED: ACETAMINOPHEN 325MG TABLET PO PRN (09:15)
[2022-10-23] MEDS ORDERED: ATROPINE SULFATE 1MG/10ML SYR IV PRN (09:15)
[2022-10-23] MEDS ORDERED: MORPHINE SULFATE 2 MG/ML CPJ (NOT FOR IM USE) IV PRN (09:15)
[2022-10-23] MEDS ORDERED: CLOPIDOGREL 75MG TABLET PO NR (09:15)
[2022-10-23] MEDS ORDERED: NITROGLYCERIN 50MCG/ML 10ML VIAL (CATH LAB) IV ONE (09:18)
[2022-10-23] MEDS ORDERED: NICARDIPINE 100MCG/ML 10ML VIAL (CATH LAB) IV ONE (09:18)
[2022-10-23 13:55] LABS: PLATELET ESTIMATE INCREASED
[2022-10-23] MEDS: IRON SUCROSE COMPLEX 100 MG/5 ML ML IV SCH (17:32)
[2022-10-23] MEDS: ZOLPIDEM TARTRATE 5MG TABLET PO PRN (21:19)
[2022-10-23 21:54] LABS: HEMATOCRIT 30.5 % (42.0-52.0); HEMOGLOBIN 9.9 g/dL (14.0-18.0)
[2022-10-24] VITALS (18 sets, daily range): BP systolic 116–149; BP diastolic 51–97
[2022-10-24] MEDS: BENZONATATE 100MG CAPSULE PO SCH ×3 (06:00→21:47)
[2022-10-24] MEDS: PANTOPRAZOLE 40MG DR TABLET PO SCH (06:19)
[2022-10-24] MEDS: BLOOD SUGAR DIAGNOSTIC STRIP TEST SCH ×4 (06:32→21:48)
[2022-10-24 06:51] LABS: BASOPHILS % 0.6 % (0.0-2.0); EOSINOPHILS % 2.3 % (0.0-5.0); HEMATOCRIT. 29.2 % (42.0-52.0); HEMOGLOBIN. 9.6 g/dL (14.0-18.0); LYMPHOCYTES % 11.5 % (20.0-50.0); MEAN CORPUSCULAR VOLUME 82.3 fL (80.0-94.0); MEAN PLATELET VOLUME 8.5 fl (7.4-10.4); MONOCYTES % 6.5 % (2.0-8.0); NEUTROPHILS % 79.1 % (40.0-76.0); PLATELET 444 x1000/uL (130-400); RED BLOOD CELL COUNT 3.54 mill/uL (4.7-6.1); RED CELL DISTRIBUTION WIDTH 15.5 % (11.6-14.6)
[2022-10-24] MEDS: INSULIN LISPRO 100 UNITS/ML SUBCUT SCH ×4 (07:17→21:54)
[2022-10-24] MEDS: GUAIFENESIN 600MG ER TABLET PO SCH ×2 (09:00→21:50)
[2022-10-24] MEDS: ONDANSETRON HCL 4MG/2ML INJ IV PRN (09:38)
[2022-10-24] MEDS ORDERED: SODIUM CHLORIDE 0.45% 500 ML IV ONE (10:00)
[2022-10-24] MEDS ORDERED: PANTOPRAZOLE SODIUM 40 MG/VIAL IV SCH (10:00)
[2022-10-24 10:28] LABS: PHOSPHORUS 6.8 mg/dL (2.5-4.9)
[2022-10-24] MEDS ORDERED: LIDOCAINE 2% 6ML GLYDO MM ONE (10:45)
[2022-10-24] MEDS ORDERED: TETRACAINE/BENZOCAINE/BUTAMBEN 20 GM SPRAY MM ONE (10:45)
[2022-10-24] MEDS ORDERED: FENTANYL CITRATE/PF 50MCG/ML 2ML VIAL ONE (11:09)
[2022-10-24] MEDS ORDERED: MIDAZOLAM HCL 2 MG/2 ML VIAL ONE (11:10)
[2022-10-24] MEDS: ASPIRIN 81MG EC TABLET PO SCH (17:50)
[2022-10-24] MEDS: CARVEDILOL 6.25 MG TABLET PO SCH ×2 (17:50→21:49)
[2022-10-24] MEDS: CLOPIDOGREL 75MG TABLET PO SCH (17:50)
[2022-10-24] MEDS: AMLODIPINE 5MG TABLET PO SCH (17:50)
[2022-10-24] MEDS: ZOLPIDEM TARTRATE 5MG TABLET PO PRN (21:59)
[2022-10-25] VITALS: BP 118/69
[2022-10-25 04:00] VITALS: BP 127/93
[2022-10-25] MEDS: BENZONATATE 100MG CAPSULE PO SCH ×3 (06:48→21:55)
[2022-10-25] MEDS: BLOOD SUGAR DIAGNOSTIC STRIP TEST SCH ×4 (06:48→22:00)
[2022-10-25] MEDS: FAMOTIDINE 20MG TABLET PO SCH (06:48)
[2022-10-25 06:49] LABS: BASOPHILS % 0.4 % (0.0-2.0); HEMATOCRIT. 25.3 % (42.0-52.0); HEMOGLOBIN. 8.2 g/dL (14.0-18.0); MEAN CORPUSCULAR HEMOGLOBIN 26.8 pg (28.0-32.0); MEAN CORPUSCULAR VOLUME 82.5 fL (80.0-94.0); MEAN PLATELET VOLUME 8.5 fl (7.4-10.4); MONOCYTES % 7.4 % (2.0-8.0); NEUTROPHILS % 74.2 % (40.0-76.0); PLATELET 413 x1000/uL (130-400); RED BLOOD CELL COUNT 3.07 mill/uL (4.7-6.1); RED CELL DISTRIBUTION WIDTH 15.5 % (11.6-14.6)
[2022-10-25 07:57] VITALS: BP 110/73
[2022-10-25] MEDS: CLOPIDOGREL 75MG TABLET PO SCH (09:33)
[2022-10-25] MEDS: ASPIRIN 81MG EC TABLET PO SCH (09:33)
[2022-10-25] MEDS: AMLODIPINE 5MG TABLET PO SCH (09:33)
[2022-10-25] MEDS: GUAIFENESIN 600MG ER TABLET PO SCH ×2 (09:33→21:55)
[2022-10-25] MEDS: CARVEDILOL 6.25 MG TABLET PO SCH ×2 (09:36→21:59)
[2022-10-25] MEDS: INSULIN LISPRO 100 UNITS/ML SUBCUT SCH ×4 (09:41→22:00)
[2022-10-25 12:00] VITALS: BP 127/74
[2022-10-25 18:00] VITALS: BP 136/55
[2022-10-25] MEDS: ONDANSETRON HCL 4MG/2ML INJ IV PRN (18:10)
[2022-10-25 20:00] VITALS: BP 112/91
[2022-10-25] MEDS: ZOLPIDEM TARTRATE 5MG TABLET PO PRN (21:54)
[2022-10-26] VITALS (14 sets, daily range): BP systolic 111–171; BP diastolic 32–76
[2022-10-26 06:29] LABS: HEMATOCRIT. 22.5 % (42.0-52.0); HEMOGLOBIN. 7.3 g/dL (14.0-18.0); MEAN CORPUSCULAR HEMOGLOBIN 26.9 pg (28.0-32.0); MEAN CORPUSCULAR VOLUME 82.7 fL (80.0-94.0); MEAN PLATELET VOLUME 8.5 fl (7.4-10.4); PLATELET 389 x1000/uL (130-400); RED BLOOD CELL COUNT 2.72 mill/uL (4.7-6.1); RED CELL DISTRIBUTION WIDTH 15.4 % (11.6-14.6)
[2022-10-26] MEDS: FAMOTIDINE 20MG TABLET PO SCH (06:44)
[2022-10-26] MEDS: BENZONATATE 100MG CAPSULE PO SCH ×3 (06:44→21:11)
[2022-10-26] MEDS: BLOOD SUGAR DIAGNOSTIC STRIP TEST SCH ×4 (06:45→21:11)
[2022-10-26] MEDS: INSULIN LISPRO 100 UNITS/ML SUBCUT SCH ×4 (07:20→21:20)
[2022-10-26] MEDS: GUAIFENESIN 600MG ER TABLET PO SCH ×2 (08:57→21:11)
[2022-10-26] MEDS: ASPIRIN 81MG EC TABLET PO SCH (08:57)
[2022-10-26] MEDS: CLOPIDOGREL 75MG TABLET PO SCH (08:57)
[2022-10-26] MEDS: CARVEDILOL 6.25 MG TABLET PO SCH ×2 (08:59→21:12)
[2022-10-26] MEDS ORDERED: MECLIZINE 12.5MG TABLET PO PRN (09:30)
[2022-10-26] MEDS: DEXT 5%/0.45% NACL 1000ML 1,000 ML IV SCH (12:56)
[2022-10-26] MEDS: FERROUS SULFATE 325MG TABLET PO SCH ×2 (12:56→16:59)
[2022-10-26] MEDS: ZOLPIDEM TARTRATE 5MG TABLET PO PRN (21:11)
[2022-10-27] VITALS (11 sets, daily range): BP systolic 106–152; BP diastolic 34–68
[2022-10-27] MEDS: BENZONATATE 100MG CAPSULE PO SCH ×3 (06:41→21:34)
[2022-10-27] MEDS: FAMOTIDINE 20MG TABLET PO SCH (06:41)
[2022-10-27] MEDS: BLOOD SUGAR DIAGNOSTIC STRIP TEST SCH (06:56)
[2022-10-27 06:59] LABS: BASOPHILS % 0.7 % (0.0-2.0); EOSINOPHILS % 2.2 % (0.0-5.0); LYMPHOCYTES % 22.4 % (20.0-50.0); MEAN CORPUSCULAR VOLUME 82.4 fL (80.0-94.0); MEAN PLATELET VOLUME 8.3 fl (7.4-10.4); MONOCYTES % 7.9 % (2.0-8.0); NEUTROPHILS % 66.8 % (40.0-76.0); PLATELET 370 x1000/uL (130-400); RED BLOOD CELL COUNT 2.49 mill/uL (4.7-6.1); RED CELL DISTRIBUTION WIDTH 15.5 % (11.6-14.6)
[2022-10-27] MEDS: INSULIN LISPRO 100 UNITS/ML SUBCUT SCH ×4 (07:20→21:37)
[2022-10-27 07:25] LABS: HEMATOCRIT. 20.5 % (42.0-52.0); HEMOGLOBIN. 6.7 g/dL (14.0-18.0)
[2022-10-27 07:34] LABS: PLATELET ESTIMATE NORMAL
[2022-10-27] MEDS: GUAIFENESIN 600MG ER TABLET PO SCH ×2 (08:04→21:34)
[2022-10-27] MEDS: ASPIRIN 81MG EC TABLET PO SCH (08:04)
[2022-10-27] MEDS: FERROUS SULFATE 325MG TABLET PO SCH ×3 (08:04→16:57)
[2022-10-27] MEDS: CLOPIDOGREL 75MG TABLET PO SCH (08:05)
[2022-10-27] MEDS: DEXT 5%/0.45% NACL 1000ML 1,000 ML IV SCH (08:05)
[2022-10-27] MEDS: AMLODIPINE 5MG TABLET PO SCH (08:05)
[2022-10-27] MEDS: CARVEDILOL 6.25 MG TABLET PO SCH ×2 (08:05→21:35)
[2022-10-27] MEDS ORDERED: POTASSIUM CHLORIDE 20MEQ TABLET SR PO NR (08:30)
[2022-10-27 20:47] LABS: HEMATOCRIT 22.2 % (42.0-52.0); HEMOGLOBIN 7.3 g/dL (14.0-18.0)
[2022-10-27] MEDS ORDERED: EPOETIN ALFA-EPBX 10,000 UNIT/ML VIAL SUBCUT NR (21:00)
[2022-10-28] VITALS: BP 114/39
[2022-10-28] MEDS: DEXT 5%/0.45% NACL 1000ML 1,000 ML IV SCH ×2 (03:46→23:51)
[2022-10-28 04:00] VITALS: BP 134/48
[2022-10-28] MEDS: FAMOTIDINE 20MG TABLET PO SCH (06:59)
[2022-10-28] MEDS: BENZONATATE 100MG CAPSULE PO SCH ×3 (06:59→21:01)
[2022-10-28 07:05] LABS: BASOPHILS % 0.9 % (0.0-2.0); EOSINOPHILS % 3.2 % (0.0-5.0); HEMATOCRIT. 21.6 % (42.0-52.0); HEMOGLOBIN. 7.2 g/dL (14.0-18.0); LYMPHOCYTES % 17.8 % (20.0-50.0); MEAN CORPUSCULAR HEMOGLOBIN 27.6 pg (28.0-32.0); MEAN CORPUSCULAR VOLUME 82.4 fL (80.0-94.0); MEAN PLATELET VOLUME 8.2 fl (7.4-10.4); MONOCYTES % 7.9 % (2.0-8.0); NEUTROPHILS % 70.2 % (40.0-76.0); PLATELET 317 x1000/uL (130-400); RED BLOOD CELL COUNT 2.62 mill/uL (4.7-6.1); RED CELL DISTRIBUTION WIDTH 15.2 % (11.6-14.6)
[2022-10-28 08:00] VITALS: BP 155/51
[2022-10-28] MEDS: AMLODIPINE 5MG TABLET PO SCH (08:22)
[2022-10-28] MEDS: FERROUS SULFATE 325MG TABLET PO SCH ×3 (08:22→16:22)
[2022-10-28] MEDS: CLOPIDOGREL 75MG TABLET PO SCH (08:22)
[2022-10-28] MEDS: GUAIFENESIN 600MG ER TABLET PO SCH ×2 (08:23→21:01)
[2022-10-28] MEDS: ASPIRIN 81MG EC TABLET PO SCH (08:23)
[2022-10-28] MEDS: CARVEDILOL 6.25 MG TABLET PO SCH ×2 (08:23→21:02)
[2022-10-28] MEDS ORDERED: IPRATROPIUM/ALBUTEROL 0.5-3(2.5)MG/3ML NEB HHN PRN (10:00)
[2022-10-28] MEDS ORDERED: IPRATROPIUM BROMIDE (0.02%) 0.5MG/2.5ML NEB HHN PRN (10:00)
[2022-10-28] MEDS ORDERED: ALBUTEROL (0.083%) 2.5MG/3ML NEB HHN PRN (10:00)
[2022-10-28 12:00] VITALS: BP 154/78
[2022-10-28 16:00] VITALS: BP 154/80
[2022-10-28 20:00] VITALS: BP 174/80
[2022-10-29] VITALS (30 sets, daily range): BP systolic 121–171; BP diastolic 41–84
[2022-10-29] MEDS: BENZONATATE 100MG CAPSULE PO SCH ×2 (06:24→14:00)
[2022-10-29 06:59] LABS: BASOPHILS % 0.9 % (0.0-2.0); EOSINOPHILS % 3.4 % (0.0-5.0); HEMATOCRIT. 21.6 % (42.0-52.0); HEMOGLOBIN. 7.3 g/dL (14.0-18.0); MEAN CORPUSCULAR HEMOGLOBIN 27.8 pg (28.0-32.0); MEAN CORPUSCULAR VOLUME 82.6 fL (80.0-94.0); MEAN PLATELET VOLUME 8.4 fl (7.4-10.4); MONOCYTES % 7.6 % (2.0-8.0); NEUTROPHILS % 66.1 % (40.0-76.0); PLATELET 299 x1000/uL (130-400); RED BLOOD CELL COUNT 2.61 mill/uL (4.7-6.1); RED CELL DISTRIBUTION WIDTH 15.3 % (11.6-14.6)
[2022-10-29] MEDS: FAMOTIDINE 20MG TABLET PO SCH (07:04)
[2022-10-29] MEDS: FERROUS SULFATE 325MG TABLET PO SCH ×2 (07:20→15:20)
[2022-10-29] MEDS ORDERED: LIDOCAINE HCL 1% 10 MG/ML 10ML VIAL ONE (08:47)
[2022-10-29] MEDS ORDERED: FENTANYL CITRATE/PF 50MCG/ML 2ML VIAL ONE (08:52)
[2022-10-29] MEDS ORDERED: CEFAZOLIN 1000MG PREMIX 50 ML IV ONE ×2 (08:53→09:00)
[2022-10-29] MEDS: CLOPIDOGREL 75MG TABLET PO SCH (09:00)
[2022-10-29] MEDS: ASPIRIN 81MG EC TABLET PO SCH (09:00)
[2022-10-29] MEDS: GUAIFENESIN 600MG ER TABLET PO SCH (09:00)
[2022-10-29] MEDS: AMLODIPINE 5MG TABLET PO SCH (09:09)
[2022-10-29] MEDS: CARVEDILOL 6.25 MG TABLET PO SCH (09:15)
[2022-10-29] MEDS ORDERED: FENTANYL CITRATE/PF 50MCG/ML 2ML VIAL IV ONE (10:00)
[2022-10-29] MEDS ORDERED: CLOP75TA15 PO (11:01)
[2022-10-29] MEDS ORDERED: ASPI-1406 PO (11:01)
[2022-10-29] MEDS ORDERED: LOSA100T32 MT (11:01)
[2022-10-29] MEDS ORDERED: COR6 PO (11:01)
== END 2022-10-29 17:00 | disposition home or self-care (01) | DRG 246 ==
LOC: ER 08:39 → CVICU 10:47 → EDBEDREQSVC 11:18 → ENRESERV 13:44 → 5EST 10-19 06:40 → 7EST 10-22 14:35 → 3WST 10-23 09:56
PROVIDERS: ADMIT Family Medicine Adult Medicine; ATTEND Family Medicine Adult Medicine
PROC: 5A09457 Assistance with Respiratory Ventilation, 24-96 Consecutive Hours, Continuous Positive Airway Pressure (ICD-10-PCS; principal; 2022-10-13)
PROC: 5A0945A Assistance with Respiratory Ventilation, 24-96 Consecutive Hours, High Flow/Velocity Cannula (ICD-10-PCS; 2022-10-14)
PROC: 5A1D70Z Performance of Urinary Filtration, Intermittent, Less than 6 Hours Per Day (ICD-10-PCS; 2022-10-14)
PROC: 02H633Z Insertion of Infusion Device into Right Atrium, Percutaneous Approach (ICD-10-PCS; 2022-10-14)
PROC: 5A1D70Z Performance of Urinary Filtration, Intermittent, Less than 6 Hours Per Day (ICD-10-PCS; 2022-10-15)
PROC: 5A1D70Z Performance of Urinary Filtration, Intermittent, Less than 6 Hours Per Day (ICD-10-PCS; 2022-10-16)
PROC: 5A1D70Z Performance of Urinary Filtration, Intermittent, Less than 6 Hours Per Day (ICD-10-PCS; 2022-10-17)
PROC: 5A1D70Z Performance of Urinary Filtration, Intermittent, Less than 6 Hours Per Day (ICD-10-PCS; 2022-10-18)
PROC: 5A1D70Z Performance of Urinary Filtration, Intermittent, Less than 6 Hours Per Day (ICD-10-PCS; 2022-10-20)
PROC: 5A1D70Z Performance of Urinary Filtration, Intermittent, Less than 6 Hours Per Day (ICD-10-PCS; 2022-10-22)
PROC: 4A023N7 Measurement of Cardiac Sampling and Pressure, Left Heart, Percutaneous Approach (ICD-10-PCS; 2022-10-23)
PROC: B211YZZ Fluoroscopy of Multiple Coronary Arteries using Other Contrast (ICD-10-PCS; 2022-10-23)
PROC: 027034Z Dilation of Coronary Artery, One Artery with Drug-eluting Intraluminal Device, Percutaneous Approach (ICD-10-PCS; 2022-10-23)
PROC: B215YZZ Fluoroscopy of Left Heart using Other Contrast (ICD-10-PCS; 2022-10-23)
PROC: B24BZZ4 Ultrasonography of Heart with Aorta, Transesophageal (ICD-10-PCS; 2022-10-24)
PROC: 5A1D70Z Performance of Urinary Filtration, Intermittent, Less than 6 Hours Per Day (ICD-10-PCS; 2022-10-24)
PROC: 5A1D70Z Performance of Urinary Filtration, Intermittent, Less than 6 Hours Per Day (ICD-10-PCS; 2022-10-25)
PROC: 30233N1 Transfusion of Nonautologous Red Blood Cells into Peripheral Vein, Percutaneous Approach (ICD-10-PCS; 2022-10-27)
PROC: 0JH63XZ Insertion of Tunneled Vascular Access Device into Chest Subcutaneous Tissue and Fascia, Percutaneous Approach (ICD-10-PCS; 2022-10-29)
PROC: 02HV33Z Insertion of Infusion Device into Superior Vena Cava, Percutaneous Approach (ICD-10-PCS; 2022-10-29)
PROC: B518YZA Fluoroscopy of Superior Vena Cava using Other Contrast, Guidance (ICD-10-PCS; 2022-10-29)
PROC: 5A1D70Z Performance of Urinary Filtration, Intermittent, Less than 6 Hours Per Day (ICD-10-PCS; 2022-10-29)
DX: I13.0 Hypertensive heart and chronic kidney disease with heart failure and stage 1 through stage 4 chronic kidney disease, or unspecified chronic kidney disease (principal); A41.9 Sepsis, unspecified organism; J96.01 Acute respiratory failure with hypoxia; J18.9 Pneumonia, unspecified organism; I50.23 Acute on chronic systolic (congestive) heart failure; I21.A1 Myocardial infarction type 2; J81.0 Acute pulmonary edema; N04.9 Nephrotic syndrome with unspecified morphologic changes; N17.9 Acute kidney failure, unspecified; N18.4 Chronic kidney disease, stage 4 (severe); E44.1 Mild protein-calorie malnutrition; I25.110 Atherosclerotic heart disease of native coronary artery with unstable angina pectoris; E78.5 Hyperlipidemia, unspecified; E11.21 Type 2 diabetes mellitus with diabetic nephropathy; E11.51 Type 2 diabetes mellitus with diabetic peripheral angiopathy without gangrene; Z68.29 Body mass index [BMI] 29.0-29.9, adult; D63.1 Anemia in chronic kidney disease; I25.5 Ischemic cardiomyopathy; E11.22 Type 2 diabetes mellitus with diabetic chronic kidney disease; I95.1 Orthostatic hypotension; E11.42 Type 2 diabetes mellitus with diabetic polyneuropathy; Z20.822 Contact with and (suspected) exposure to COVID-19; Z89.429 Acquired absence of other toe(s), unspecified side; Z90.49 Acquired absence of other specified parts of digestive tract; Z95.5 Presence of coronary angioplasty implant and graft; Z79.84 Long term (current) use of oral hypoglycemic drugs; Z79.899 Other long term (current) drug therapy; Z82.49 Family history of ischemic heart disease and other diseases of the circulatory system; Z83.3 Family history of diabetes mellitus; Z79.85 Long-term (current) use of injectable non-insulin antidiabetic drugs
CPT/HCPCS: 36415; 36556; 36558; 36589; 36600; 71045; 71250; 76604; 76700; 76770; 76857; 76937; 77001; 78580; 80048; 80053; 80061; 80305; 81003; 82270; 82375; 82805; 82962; 83036; 83540; 83550; 83735; 83880; 83970; 84100; 84132; 84145; 84443; 84484; 85014; 85018; 85025; 85347; 85379; 86705; 86706; 86709; 86803; 86850; 86900; 86920; 87340; 87426; 87804; 90935; 92928; 93005; 93306; 93312; 93458; 93970; 94640; 94660; 94667; 97116; 97161; 97164; 97166; 99152; 99153; 99291; C1725; C1750; C1752; C1760; C1769; C1874; C1887; C1893; C9113; J0690; J0692; J0885; J1642; J1644; J1650; J1815; J1940; J2250; J2405; J2543; J3010; J3370; J3490; J7060; J8597; P9016; Q9967; A4315; G0500

== ENCOUNTER 2022-11-01 10:21 | Inpatient (IN) | payer MEDICARE, MEDICAID ==
[~2022-11-01] VITALS: Ht 177.8 cm; Wt 97.1 kg
[~2022-11-01 10:21] MED LIST: ASPI-1406 PO; CLOP75TA15 PO; COR6 PO; LOSA100T32 MT
[2022-11-01 12:30] LABS: BASOPHILS % 0.9 % (0.0-2.0); EOSINOPHILS % 1.1 % (0.0-5.0); HEMATOCRIT. 26.3 % (42.0-52.0); LYMPHOCYTES % 10.1 % (20.0-50.0); MEAN CORPUSCULAR VOLUME 84.9 fL (80.0-94.0); MEAN PLATELET VOLUME 8.3 fl (7.4-10.4); MONOCYTES % 4.3 % (2.0-8.0); NEUTROPHILS % 83.6 % (40.0-76.0); PLATELET 305 x1000/uL (130-400); RED CELL DISTRIBUTION WIDTH 16.1 % (11.6-14.6)
[2022-11-01 13:20] LABS: CHLORIDE 103 mEq/L (98-107)
[2022-11-01] MEDS ORDERED: SODIUM CHLORIDE 0.9% 1,000 ML IV ONE (13:30)
[2022-11-01] MEDS: ASPIRIN 81MG TABLET PO SCH (14:05)
[2022-11-01] MEDS: CLOPIDOGREL 75MG TABLET PO SCH (14:05)
[2022-11-01 14:18] LABS: ETHANOL BLOOD < 10 mg/dL
[2022-11-01] MEDS ORDERED: DOCUSATE SODIUM 100MG CAPSULE PO PRN (16:45)
[2022-11-01] MEDS ORDERED: GUAIFENESIN 200MG/10ML SUGAR FREE UDC PO PRN (16:45)
[2022-11-01] MEDS ORDERED: CLONIDINE 0.1MG TABLET PO PRN (16:45)
[2022-11-01] MEDS ORDERED: DIPHENHYDRAMINE 50MG/ML VIAL IV PRN (16:45)
[2022-11-01] MEDS ORDERED: ONDANSETRON HCL 4MG/2ML INJ IV PRN (16:45)
[2022-11-01] MEDS ORDERED: IOHEXOL-350 100 ML BOTTLE ONE (18:12)
[2022-11-01] MEDS ORDERED: DEXTROSE 50% WATER 50ML SYRINGE IV PRN (18:30)
[2022-11-01 20:00] VITALS: BP 130/31
[2022-11-01 20:17] LABS: HEPATITIS B SURFACE ANTIGEN NEGATIVE
[2022-11-01] MEDS: BLOOD SUGAR DIAGNOSTIC STRIP TEST SCH (21:00)
[2022-11-01] MEDS: CARVEDILOL 3.125 MG TABLET PO SCH (21:00)
[2022-11-01] MEDS: INSULIN LISPRO 100 UNITS/ML SUBCUT SCH (21:00)
[2022-11-01] MEDS ORDERED: ZOLPIDEM TARTRATE 5MG TABLET PO NR (22:15)
[2022-11-01] MEDS: ENOXAPARIN 30MG/0.3ML SYR SUBCUT SCH (22:16)
[2022-11-02] VITALS (17 sets, daily range): BP systolic 92–168; BP diastolic 25–69
[2022-11-02 03:15] LABS: CREATINE KINASE 44 IU/L (39-308)
[2022-11-02] MEDS: BLOOD SUGAR DIAGNOSTIC STRIP TEST SCH ×4 (05:20→20:48)
[2022-11-02] MEDS: INSULIN LISPRO 100 UNITS/ML SUBCUT SCH ×4 (05:26→20:48)
[2022-11-02 06:24] LABS: BASOPHILS % 1.1 % (0.0-2.0); EOSINOPHILS % 1.9 % (0.0-5.0); HEMATOCRIT. 25.7 % (42.0-52.0); HEMOGLOBIN. 8.5 g/dL (14.0-18.0); LYMPHOCYTES % 16.4 % (20.0-50.0); MEAN CORPUSCULAR VOLUME 84.7 fL (80.0-94.0); MEAN PLATELET VOLUME 8.3 fl (7.4-10.4); MONOCYTES % 7.2 % (2.0-8.0); NEUTROPHILS % 73.4 % (40.0-76.0); PLATELET 277 x1000/uL (130-400); RED BLOOD CELL COUNT 3.03 mill/uL (4.7-6.1); RED CELL DISTRIBUTION WIDTH 15.7 % (11.6-14.6)
[2022-11-02 06:42] LABS: CHLORIDE 107 mEq/L (98-107)
[2022-11-02 06:55] LABS: CREATINE KINASE 41 IU/L (39-308)
[2022-11-02] MEDS: CARVEDILOL 3.125 MG TABLET PO SCH ×2 (08:11→21:26)
[2022-11-02] MEDS: CLOPIDOGREL 75MG TABLET PO SCH (08:15)
[2022-11-02] MEDS: FAMOTIDINE 20MG TABLET PO SCH (08:15)
[2022-11-02] MEDS: ASPIRIN 81MG TABLET PO SCH (08:15)
[2022-11-02] MEDS: ENOXAPARIN 30MG/0.3ML SYR SUBCUT SCH (16:45)
[2022-11-03] VITALS: BP 132/35
[2022-11-03 04:00] VITALS: BP 109/30
[2022-11-03] MEDS: BLOOD SUGAR DIAGNOSTIC STRIP TEST SCH ×2 (06:20→11:11)
[2022-11-03] MEDS: INSULIN LISPRO 100 UNITS/ML SUBCUT SCH ×2 (06:20→11:11)
[2022-11-03 07:50] VITALS: BP_SYST 153; BP_SYST 160; BP_DIAS 43; BP_DIAS 47
[2022-11-03] MEDS: ASPIRIN 81MG TABLET PO SCH (08:00)
[2022-11-03] MEDS: FAMOTIDINE 20MG TABLET PO SCH (08:00)
[2022-11-03] MEDS: CARVEDILOL 3.125 MG TABLET PO SCH (08:00)
[2022-11-03] MEDS: CLOPIDOGREL 75MG TABLET PO SCH (08:00)
[2022-11-03 08:47] LABS: BASOPHILS % 1.1 % (0.0-2.0); EOSINOPHILS % 3.8 % (0.0-5.0); HEMATOCRIT. 26.7 % (42.0-52.0); HEMOGLOBIN. 8.9 g/dL (14.0-18.0); LYMPHOCYTES % 20.9 % (20.0-50.0); MEAN CORPUSCULAR HEMOGLOBIN 28.1 pg (28.0-32.0); MEAN PLATELET VOLUME 8.5 fl (7.4-10.4); MONOCYTES % 9.2 % (2.0-8.0); PLATELET 246 x1000/uL (130-400); RED BLOOD CELL COUNT 3.17 mill/uL (4.7-6.1); RED CELL DISTRIBUTION WIDTH 16.1 % (11.6-14.6)
[2022-11-03 09:08] LABS: CHLORIDE 105 mEq/L (98-107)
[2022-11-03 11:41] VITALS: BP_SYST 102; BP_SYST 137; BP_SYST 91; BP_DIAS 22; BP_DIAS 39; BP_DIAS 45
[2022-11-03] MEDS ORDERED: FAMO20TA8 PO (12:47)
[2022-11-03 13:34] VITALS: BP 137/50
[2022-11-03] MEDS ORDERED: ZOLPIDEM TARTRATE 5MG TABLET PO PRN (21:00)
== END 2022-11-03 14:25 | disposition home or self-care (01) | DRG 73 ==
LOC: ER 10:21 → MICUSO 15:53 → EDBEDREQ 15:54 → EDBEDREQTM 15:54 → 7EST 18:49
PROVIDERS: ADMIT Hospitalist; ATTEND Family Medicine Adult Medicine
PROC: 5A1D70Z Performance of Urinary Filtration, Intermittent, Less than 6 Hours Per Day (ICD-10-PCS; principal; 2022-11-02)
DX: G90.8 Other disorders of autonomic nervous system (principal); N18.6 End stage renal disease; I13.2 Hypertensive heart and chronic kidney disease with heart failure and with stage 5 chronic kidney disease, or end stage renal disease; I50.22 Chronic systolic (congestive) heart failure; N13.30 Unspecified hydronephrosis; I95.1 Orthostatic hypotension; Z20.822 Contact with and (suspected) exposure to COVID-19; Z66 Do not resuscitate; E11.22 Type 2 diabetes mellitus with diabetic chronic kidney disease; E78.5 Hyperlipidemia, unspecified; I25.10 Atherosclerotic heart disease of native coronary artery without angina pectoris; I25.5 Ischemic cardiomyopathy; D63.1 Anemia in chronic kidney disease; E11.51 Type 2 diabetes mellitus with diabetic peripheral angiopathy without gangrene; Z99.2 Dependence on renal dialysis; I25.2 Old myocardial infarction; Z79.02 Long term (current) use of antithrombotics/antiplatelets; Z79.82 Long term (current) use of aspirin; Z79.84 Long term (current) use of oral hypoglycemic drugs; Z79.899 Other long term (current) drug therapy; Z89.422 Acquired absence of other left toe(s); Z90.49 Acquired absence of other specified parts of digestive tract; Z95.5 Presence of coronary angioplasty implant and graft
CPT/HCPCS: 36415; 70496; 70498; 71045; 80053; 80320; 82550; 82962; 83735; 83880; 84484; 85025; 86705; 86709; 86803; 87340; 87426; 90935; 93005; 97162; 99285; J1650; J1815; Q9967; G0480